=== PATIENT | female | born 1940 | race Caucasian/White ===

== ENCOUNTER 2016-04-22 06:49 | Inpatient (IN) | payer MEDICARE, OTHER ==
[2016-03-25 11:09] VITALS: BMI 32.0
--- NOTE | 2016-03-25 11:43 | PAT Medication Instructions ---
Service Date Mar 25, 2016. Current Home Medication List Aspirin (Aspirin Chewable), 2 TAB PO QAM Ezetimibe (Zetia), 10 MG PO QPM Multivitamins/Minerals (Mvi With Minerals), 1 TAB PO QAM Simvastatin (Zocor), 40 MG PO QPM Medication Instructions For Your Scheduled Surgery Aspirin (Aspirin Chewable), 2 TAB PO QAM (per surgeon instructions) - Hold the following medications the morning of surgery: Multivitamins/Minerals (Mvi With Minerals), 1 TAB PO QAM - Take the following medications as scheduled the night before surgery: Simvastatin (Zocor), 40 MG PO QPM Ezetimibe (Zetia), 10 MG PO QPM If you have any questions please call us at [phone] or [phone] ( Adri) or [phone]
[2016-03-25 12:26] LABS: BASO % 0.2 %; BASO ABS # 0.01 K/uL (0-0.2); COMPLETE YES; EOS % 4.6 %; HEMATOCRIT 40.6 % (37-47); IG% 0.2 %; LYMPH % 28.4 %; LYMPH ABS # 1.62 K/uL (1.2-3.4); MEAN CELL VOLUME 90.8 fL (80-100); MEAN CORPUSCULAR HEMOGLOBIN 31.1 pg (25-34); MEAN CORPUSCULAR HGB CONC 34.2 g/dl (32-36); MEAN PLATELET VOLUME 10.6 fL (7.4-10.4); NEUT % 56.6 %; PLATELET COUNT 219 K/uL (130-400); RED BLOOD COUNT 4.47 M/uL (4.2-5.4); WHITE BLOOD COUNT 5.71 K/uL (4.8-10.8)
--- NOTE | 2016-03-25 12:37 | DIAGNOSTIC IMAGING REPORT ---
TWO VIEW CHEST CLINICAL HISTORY: Preoperative examination. FINDINGS: PA and lateral chest radiographs are obtained. No prior studies are available for comparison at the time of dictation. There is atherosclerotic calcification of the thoracic aorta. The cardiomediastinal silhouette is unremarkable. Nonspecific interstitial thickening is noted. No airspace consolidation or pleural effusion is identified. There is no pneumothorax. The skeletal structures are osteopenic. Degenerative change is noted throughout the thoracic spine. Calcific tendinopathy is seen in the left shoulder. IMPRESSION: No active disease in the chest. Electronically signed by: Gilberto Trent M.D. 03/25/2016 12:36 PM Dictated Date/Time: 03/25/2016 12:35 PM
[2016-03-25 12:41] LABS: PROTHROMBIN TIME (PATIENT) 11.1 SECONDS (9.0-12.0)
[2016-03-25 12:55] LABS: BUN/CREATININE RATIO 34.8 (10-20); CALCIUM 9.7 mg/dl (8.5-10.1); CREATININE 0.73 mg/dl (0.60-1.20); POTASSIUM 3.8 mmol/L (3.5-5.1)
--- NOTE | 2016-04-17 23:09 | HISTORY & PHYSICAL EXAMINATION ---
DATE OF ADMISSION: 04/22/2016 CHIEF COMPLAINT: Bilateral knee pain, left side greater than right. HISTORY OF PRESENT ILLNESS: A 76-year-old white female presents for surgical treatment of her left knee. She has had a long history of bilateral knee pain and discomfort, left side greater than right. She has been through extensive conservative treatment including injections which have become less successful with time. Both knees hurt. Pain has been present for over 6 years. She would now like to proceed with left knee replacement. Left knee is worse than the right. PAST MEDICAL HISTORY: Includes: 1. Hypertension. 2. Anxiety/depression. PAST SURGICAL HISTORY: 1. Hysterectomy. 2. Cataract surgery. ALLERGIES: None. CURRENT MEDICINES: 1. Zetia. 2. Simvastatin. 3. Aspirin 81 mg a day. SOCIAL HISTORY: A 75-year-old female. She is . She is from [place]. FAMILY HISTORY: Noncontributory. REVIEW OF SYSTEMS: Negative for diabetes, neurologic problems, vascular problems, bleeding disorders. Denies any chest pain or shortness of breath. No history of DVT or PE. PHYSICAL EXAMINATION: GENERAL: Reveals a healthy, pleasant elderly female. Looks to be in pretty good health. HEENT: Benign. NECK: Supple, no lymphadenopathy. LUNGS: Clear to auscultation. HEART: Regular rate and rhythm. ABDOMEN: Soft, nontender, nondistended. EXTREMITIES: Grossly neurovascularly intact except as follows: Examination of both knees reveals the patient walks independently. She has got valgus alignment to her left knee. Small knee effusion. Range of motion of the left knee is about 5-120. No instability. X-RAYS: X-rays of the left knee revealed advanced left knee DJD. She has got complete loss of the lateral joint space on the 40 degree flexion films. She has got osteophytes in the lateral femoral condyle and lateral tibial plateau. Medial side seems pretty well preserved. ASSESSMENT: A 76-year-old female with bilateral knee pain and degenerative joint disease, left side quite a bit worse than the right. She has failed conservative treatment on the left side and would like to have her knee replaced. PLAN: We will take her to the operating room and do left total knee replacement. The risks and benefits of this procedure were explained to the patient including but not limited to DVT, PE, , infection, neurological injury, vascular injury, bleeding problem, pain, limited range of motion, stiffness, failure to relieve symptoms, incomplete relief of symptoms, need for further surgery in the future, fracture, leg length inequality, nerve palsy, etc. The patient understands and desires to proceed. Informed consent was obtained. We will continue to treat her right knee conservatively with injections. The patient had a preoperative workup. Labs were all normal. Chest x-ray is normal. She does have a left bundle-branch block on her EKG. She is asymptomatic from a cardiac standpoint. She is hoping to be discharged to home and use [facility] home health program, and I will see her back 2 weeks postop. ARIN
[2016-04-22] VITALS (9 sets, daily range): BP systolic 133–190; BP diastolic 77–94; PULSE 62–77; TEMP 36.3–36.8; O2SAT 95–100; Ht 152.4 cm; Wt 74.8 kg
[~2016-04-22] VITALS: Ht 152.4 cm; Wt 74.8 kg
[~2016-04-22 06:49] MED LIST: ACETAMINOPHEN 500 MG TAB PO SCH; ASPCH81X PO; BUPIVACAINE 0.25% 30 ML VIAL ONE; BUPIVACAINE 0.5 % 5 MG/1 ML PF 10ML VIAL ONE; BUPIVACAINE LIPOSOME 266 MG, BUPIVACAINE/EPINEPHRINE INJ 50 ML, SODIUM CHLORIDE 0.9% PF... INFIL SCH; CEFAZOLIN 2000 MG/60 ML D5W 60 ML IV SCH; EZET10TA63 PO; FAMOTIDINE 20 MG TAB PO SCH; GABAPENTIN 300 MG CAP PO SCH; LACTATED RINGER'S 1000ML 1,000 ML IV SCH; LACTATED RINGER'S 1000ML 500 ML IV ONE; METOCLOPRAMIDE HCL 10 MG TAB PO SCH; MULT-513 PO; SCOPOLAMINE 1.5 MG TDSY TD SCH; SIMV40TA2 PO; TRANEXAMIC ACID INJ 1,000 MG in SODIUM CHLORIDE 0.9% 100ML 100 ML IV SCH
[2016-04-22] MEDS ORDERED: ACET160S78 PO (07:09)
[2016-04-22] MEDS ORDERED: MIDAZOLAM HCL 1 MG/ML 2ML VIAL ONE ×3 (07:16→09:46)
[2016-04-22] MEDS ORDERED: FENTANYL CITRATE INJ 50 MCG/1 ML 2 ML VIAL ONE (07:16)
[2016-04-22] MEDS ORDERED: PROPOFOL IV EMULSION 10 MG/ML 20 ML VIAL IV ONE ×2 (07:16→10:16)
[2016-04-22] MEDS ORDERED: LIDOCAINE HCL 2% 2 ML VIAL (20MG/ML) ONE (07:16)
[2016-04-22] MEDS ORDERED: BACITRACIN 50000 UNIT VIAL ONE (08:41)
[2016-04-22] MEDS ORDERED: SODIUM CHL BACTERIOSTATIC 0.9% INJ 30 ML VIAL ONE (08:41)
[2016-04-22] MEDS ORDERED: BUPIVACAINE LIPOSOME 1/3% 266 MG/20 ML VIAL INFIL ONE (08:41)
[2016-04-22] MEDS ORDERED: BUPIVACAINE/EPINEPHRINE 0.25% 1:200,000 30 ML VIAL ONE (08:41)
--- NOTE | 2016-04-22 08:41 | History & Physical Bridge Note ---
H&P Re-Evaluation Bridge Note: I have examined the patient, reviewed the History & Physical and in the interval since the performance of the History & Physical I have noted the following changes of clinical significance: No changes noted
[2016-04-22] MEDS ORDERED: SODIUM CHLORIDE 0.9% PF 50 ML VIAL ONE (08:46)
[2016-04-22] MEDS ORDERED: BACITRACIN 50000 UNIT VIAL IR ONE (09:40)
[2016-04-22] MEDS ORDERED: ATROPINE SULFATE 0.1 MG/ML 5ML SYR IV PRN (09:45)
[2016-04-22] MEDS ORDERED: EpHEDrine SULFATE INJ 50 MG/ML AMP IV PRN (09:45)
--- NOTE | 2016-04-22 10:29 | [facility] Post Operative Brief Note ---
Immediate Operative Summary Operative Date Apr 22, 2016. Pre-Operative Diagnosis Left Knee Degenerative Joint Disease Post-Operative Diagnosis Left Knee Degenerative Joint Disease Procedure(s) Performed Left Total Knee Arthroplasty, Cemented Surgeon Dr. Shipley Auto Mechanic Apprentice Surgeon(s) Jung Galvez PA-C Estimated Blood Loss 50 ML Findings Left Knee DJD Fluids (cc crystalloids) 1500 cc Specimens A: Left Knee Bone and Tissue Drains None Anesthesia Spinal Complication(s) None Disposition Recovery Room / PACU
[2016-04-22] MEDS ORDERED: ZOLPIDEM TARTRATE 5 MG TAB PO PRN (10:30)
[2016-04-22] MEDS ORDERED: ALUMINUM/MAGNESIUM/SIMETH (MAALOX MAX) 30 ML UDC PO PRN (10:30)
[2016-04-22] MEDS ORDERED: METOCLOPRAMIDE HCL INJ 5 MG/ML 2 ML VIAL IV PRN (10:30)
[2016-04-22] MEDS ORDERED: TRAMADOL HCL 50 MG TAB PO PRN (10:30)
[2016-04-22] MEDS ORDERED: DiphenhydrAMINE HCL 50 MG/ML VIAL IV PRN (10:30)
[2016-04-22] MEDS ORDERED: BISACODYL 10 MG SUPP PR PRN (10:30)
[2016-04-22] MEDS ORDERED: ONDANSETRON INJ 2 MG/ML 2 ML VIAL IV PRN (10:30)
[2016-04-22] MEDS ORDERED: MoRPHine SULFATE 2 MG/ML CARP IV PRN (10:30)
[2016-04-22] MEDS ORDERED: MAGNESIUM HYDROXIDE SUSP 30 ML UDC PO PRN (10:30)
[2016-04-22] MEDS ORDERED: SILVER SULFADIAZINE 1% CR 50 GM JAR EXT PRN (10:30)
[2016-04-22] MEDS ORDERED: ONDANSETRON INJ 2 MG/ML 2 ML VIAL ONE (10:59)
--- NOTE | 2016-04-22 11:02 | DIAGNOSTIC IMAGING REPORT ---
TWO VIEWS LEFT KNEE CLINICAL HISTORY: Postoperative examination. FINDINGS: AP and crosstable lateral portable views of the left knee are obtained. A left knee arthroplasty is in near anatomic alignment. There has been undersurface remodeling of the patella. No acute fracture is seen. There are expected postoperative changes around the knee including skin clips, soft tissue edema, and subcutaneous gas. IMPRESSION: Expected postoperative changes status post left knee arthroplasty. No acute fracture is seen. Electronically signed by: Gilberto Trent M.D. 04/22/2016 11:01 AM Dictated Date/Time: 04/22/2016 11:00 AM
[2016-04-22] MEDS ORDERED: ONDANSETRON INJ 2 MG/ML 2 ML VIAL IV STA (11:11)
--- NOTE | 2016-04-22 11:21 | OPERATIVE REPORT ---
DATE OF OPERATION: 04/22/2016 SURGEON: Tristen Shipley MD PORTAL DEVELOPER: LUIS Foley. PREOPERATIVE DIAGNOSIS: Left knee degenerative joint disease. POSTOPERATIVE DIAGNOSIS: Same. PROCEDURE PERFORMED: Left cemented posterior stabilized total knee arthroplasty. COMPLICATIONS: None. ESTIMATED BLOOD LOSS: 50 mL. FLUID REPLACEMENT: 1500 mL crystalloid fluid replacement. ANESTHESIA: Spinal with adductor canal block. DRAINS: None. SPECIMENS: Left knee sent for pathology. TOURNIQUET TIME: 53 minutes at 300 mmHg. OPERATIVE INDICATIONS: The patient is a 76-year-old female who has had a long history of bilateral knee pain and discomfort. I have been following her for the past several years, treating her with injections. This became less successful over time. The left knee was hurting her more than the right. X-rays showed advanced arthritis and the patient elected to proceed with operative treatment. OPERATIVE FINDINGS: Operative findings revealed advanced left knee DJD. She had grade 4 [id number] disease, particularly on the lateral side of the knee. She had eburnation of the lateral femoral condyle and lateral tibial plateau. She had a valgus aligned knee. Moderate size joint effusion. OPERATIVE IMPLANTS: Operative implants consisted of: 1. Biomet Vanguard size 62.5 left posterior stabilized femoral component. 2. Biomet size 67 tibial tray. 3. A 12 mm posterior stabilized polyethylene insert. 4. A 28 x 8 all poly patella. OPERATIVE PROCEDURE: The patient was taken to the operating room, identified and placed on the operating table in supine position. All contact areas were appropriately padded. IV antibiotics were provided by the anesthesia team. A spinal anesthetic and adductor canal block had been provided in the holding area. A Ramirez catheter was placed in sterile fashion. Left thigh tourniquet was then placed. The left lower extremity was then prepped and draped in the usual sterile fashion. Left leg was elevated and exsanguinated with Esmarch and tourniquet was placed at 300 mmHg. An anterior approach to the left knee was then performed through a longitudinal incision centered over the patella. Sharp dissection was carried out through the subcutaneous tissues down to the level of the extensor mechanism. A medial parapatellar arthrotomy incision was made. Some subperiosteal dissection was carried out medially. The fat pad was resected from beneath the patellar tendon. Lateral patellofemoral ligament was released. The patella was everted and knee was flexed. The osteophytes were taken off the distal femur. The ACL and PCL were then released from the distal femur and the tibia subluxated anteriorly. The external tibial alignment jig was then placed in the anterior face of the tibia and adjusted 14 mm medially. Proximal tibial cut was made to remove about 3-4 mm of bone from the medial side. The tibia was then sized to a size 67. Attention was then drawn to the femur. The distal femur was entered with a sharp drill bit. Intramedullary canal was suctioned. A left 5-degree valgus cutting guide was placed. Distal femoral cutting block was pinned in place. Distal femoral cut was made to take an additional 3 mm of bone off the distal femur. The knee was then brought out into extension. I then did a release of the IT band in order to equalize the extension gap. The posterolateral capsule was not excessively tight, so we left this alone. Great care was taken to protect the peroneal nerve at all times. The knee was then flexed. The femur was then sized to a size 62.5. We did downsize this due to the narrow medial/lateral dimensions to her femur. The AP cutting block was pinned parallel to the epicondylar axis, which was 6 degrees of external rotation. The anterior cut, anterior chamfer, posterior cut, posterior chamfer cuts were made. Box cutting guide was placed and adjusted slightly lateral and the box cut was made. The knee was flexed. The remnants of the medial and lateral menisci were excised. The osteophytes were taken off the posterior aspect of the femur. Trial femoral component was placed. Tibial tray was pinned in maximum external rotation and drill and stem punch were used to create defect in the proximal tibia for the tibial tray. The knee was then trialed and the 12 mm insert fit most appropriately. Attention was then drawn to the patella. The patella was cleaned of all soft tissues. Patella thickness measured 19 mm, was cut down to 12. It was sized to a size 28 patella. Lug holes were drilled for the 28 patella. Lateral osteophyte was removed. Patella button was placed. Knee was taken through range of motion and the patella tracked nicely with no thumbs test. Attention was then drawn toward placement of the permanent components. All trial components were removed. A bone plug was placed in the distal femur to limit blood loss. A double batch of Palacos G cement was mixed. A left size 62.5 posterior stabilized femoral component, size 67 tibial tray, a 12 mm posterior stabilized polyethylene insert, a 28 x 8 all poly patella then cemented in place. Knee was brought out into full extension until cement hardened. A final cement check was then performed. Pericapsular tissues were injected with a total of 100 mL of a combination of 20 mL of Exparel, 30 mL of normal saline, 50 mL of 0.25% Marcaine with epinephrine. The patient did receive 1 gram of tranexamic acid. The tourniquet was then let down for a final tourniquet time of 53 minutes. Hemostasis was assured with use of electrocautery. The wound was once again irrigated. The extensor mechanism was then closed with a combination of #1 PDS suture and #1 Vicryl suture in a [id number] fashion. Extensor mechanism was checked and found to be intact. The subcutaneous tissues were then closed with 2-0 Dexon suture in a buried interrupted fashion. Skin was closed with skin max. Leg was then cleaned and dried and a sterile dressing of Xeroform, 4 x 4, sterile cast padding and an Juan bandage were applied. The patient then transferred to the recovery room in stable condition. The patient tolerated the procedure well with no complications. All needle and sponge counts were correct at the end of the operation. I attest to the content of the Intraoperative Record and any orders documented therein. Any exceptio ns are noted below.
--- NOTE | 2016-04-22 12:00 | Anesthesiology Progress Note ---
Anesthesia Post Op Note Date & Time Apr 22, 2016 at 12:00 Vital Signs Pain Intensity: 0 Vital Signs Past 12 Hours Date Time Temp Pulse Resp B/P Pulse Ox O2 Delivery O2 Flow Rate FiO2 04/22/16 11:15 36.8 78 16 151/88 98 Nasal Cannula 2 04/22/16 11:05 78 16 176/98 98 Nasal Cannula 2 04/22/16 10:55 76 16 163/93 98 Nasal Cannula 2 04/22/16 10:45 78 16 155/87 94 Mask 10 04/22/16 10:35 36.6 87 16 127/79 99 Mask 10 04/22/16 07:10 36.5 64 20 190/94 98 Room Air Notes Mental Status: alert / awake / arousable, participated in evaluation Pt Amnestic to Procedure: Yes Nausea / Vomiting: adequately controlled Pain: adequately controlled Airway Patency, RR, SpO2: stable & adequate BP & HR: stable & adequate Hydration State: stable & adequate Neuraxial Anesthesia: was administered, sensory block is resolving Anesthetic Complications: no major complications apparent
--- NOTE | 2016-04-22 13:37 | PROGRESS NOTE ---
DATE: 04/22/2016 SUBJECTIVE: A 76-year-old female, postop from a left knee replacement. She is doing well. Not having any pain yet. Did have a little nausea earlier but this has resolved. No chest pain or shortness of breath. Not feeling dizzy or lightheaded. OBJECTIVE: VITAL SIGNS: Temperature is 36.6. Vital signs stable. PHYSICAL EXAMINATION: GENERAL: Reveals a pleasant elderly female. She is lying in bed and looks comfortable. LUNGS: Clear to auscultation. HEART: Regular rate and rhythm. ABDOMEN: Soft, nontender, nondistended. EXTREMITIES: Grossly neurovascularly intact except as follows: Examination of the left lower extremity reveals the leg to be well aligned. She can dorsiflex and plantarflex her foot and toe just slightly. Still decreased sensation in the left leg. She has got brisk refill, good distal pulse. X-RAYS: X-rays of the left knee from recovery room were reviewed. It shows a left cemented posterior stabilized total knee arthroplasty. Components looked to be in good position. No signs of problems. ASSESSMENT: A 76-year-old female, postop from a left knee replacement, doing well. Pain is controlled. Her nerve function is just returning from the spinal. PLAN: 1. DVT prophylaxis including thigh-high TEDs, SCDs, and aspirin twice a day. 2. PT/OT. Weightbearing as tolerated. Left total knee protocol. 3. Pain control. Doing well with current pain regimen. We will try and stick to p.o. pain medicine as much as possible. 4. IV antibiotics x24 hours. 5. Disposition: She is planning to be discharged to home with some home health once adequately recovered.
[2016-04-22] MEDS: D5W AND 1/2NSS + 20MEQ KCL 1,000 ML IV SCH ×2 (13:40→23:55)
[2016-04-22] MEDS: KETOROLAC TROMETHAMINE 15 MG/ML VIAL IV. SCH ×2 (14:12→19:39)
[2016-04-22] MEDS: ACETAMINOPHEN 500 MG TAB PO SCH ×2 (15:37→21:42)
[2016-04-22] MEDS: CHECK SCOPOLAMINE PATCH PLACEMENT SCH ×2 (15:37→23:55)
[2016-04-22] MEDS ORDERED: TRANEXAMIC ACID INJ 1,000 MG in SODIUM CHLORIDE 0.9% 100ML 100 ML IV SCH (16:30)
[2016-04-22] MEDS: CEFAZOLIN IV 1,000 MG in DEXTROSE 5% 50ML 50 ML IV SCH (17:31)
[2016-04-22] MEDS: FERROUS GLUCONATE 324 MG TAB PO SCH (18:45)
[2016-04-22] MEDS: DOCUSATE SODIUM 100 MG CAP PO SCH (20:33)
[2016-04-22] MEDS: EZETIMIBE 10MG TAB PO SCH (20:33)
[2016-04-22] MEDS: SIMVASTATIN 40 MG TAB PO SCH (20:33)
[2016-04-22] MEDS: ASPIRIN 325 MG ECTAB PO SCH (20:33)
[2016-04-23] MEDS: KETOROLAC TROMETHAMINE 15 MG/ML VIAL IV. SCH ×4 (01:30→20:37)
[2016-04-23] MEDS: CEFAZOLIN IV 1,000 MG in DEXTROSE 5% 50ML 50 ML IV SCH (01:30)
[2016-04-23 03:13] VITALS: BP 167/79; PULSE 67; TEMP 36.8; O2SAT 96
[2016-04-23] MEDS: ACETAMINOPHEN 500 MG TAB PO SCH ×3 (06:05→21:32)
[2016-04-23 06:13] LABS: HEMATOCRIT 33.4 % (37-47); MEAN CORPUSCULAR HEMOGLOBIN 31.7 pg (25-34); MEAN CORPUSCULAR HGB CONC 34.4 g/dl (32-36); MEAN PLATELET VOLUME 10.7 fL (7.4-10.4); PLATELET COUNT 151 K/uL (130-400); RED BLOOD COUNT 3.63 M/uL (4.2-5.4)
[2016-04-23 06:43] LABS: BUN/CREATININE RATIO 20.1 (10-20); CALCIUM 8.4 mg/dl (8.5-10.1); CREATININE 0.8 mg/dl (0.60-1.20); POTASSIUM 3.9 mmol/L (3.5-5.1)
[2016-04-23] MEDS: FERROUS GLUCONATE 324 MG TAB PO SCH ×3 (07:14→17:44)
[2016-04-23] MEDS: CHECK SCOPOLAMINE PATCH PLACEMENT SCH ×3 (07:15→22:36)
[2016-04-23 08:01] VITALS: BP 160/80; PULSE 62; TEMP 36.7; O2SAT 93
[2016-04-23] MEDS: ASPIRIN 325 MG ECTAB PO SCH ×2 (08:37→20:37)
[2016-04-23] MEDS: CEROVITE ADV FORMULA TAB PO SCH (08:37)
[2016-04-23] MEDS: PANTOprazole SOD 40 MG TAB PO SCH (08:37)
[2016-04-23] MEDS: DOCUSATE SODIUM 100 MG CAP PO SCH ×2 (08:37→20:37)
[2016-04-23 08:40] VITALS: O2SAT 93
[2016-04-23] MEDS ORDERED: MULTIVITAMIN TAB PO SCH (09:00)
[2016-04-23] MEDS: D5W AND 1/2NSS + 20MEQ KCL 1,000 ML IV SCH (09:05)
[2016-04-23] MEDS ORDERED: ULT50X PO (10:05)
[2016-04-23] MEDS ORDERED: ASPEC325 PO (10:05)
--- NOTE | 2016-04-23 10:07 | Discharge Instructions ---
Discharge Instructions Admission Reason for Admission: Left Knee Degenerative Joint Disease Discharge Discharge Diagnosis / Problem: Left Knee Replacement Discharge Goals Goal(s): Decrease discomfort, Improve function, Increase independence, Improve disease control, Therapeutic intervention Activity Recommendations Activity Limitations: per Instructions/Follow-up section Weightbearing Status: Left weightbearing . Instructions / Follow-Up Instructions / Follow-Up ACTIVITY RECOMMENDATIONS: Physical Therapy: * You will go to physical therapy three times each week for four to six weeks after your surgery in order to regain your knee range of motion and to retrain your knee to work properly. * It is just as important to make sure you are getting your knee perfectly straight as it is to regain your knee bend. * Taking a pain pill an hour before therapy can help you have a more productive and comfortable therapy session. Home Exercise: * You were shown a series of exercises (heel props, heel slides, etc.) in the hospital. Do these exercises three to four times each day including the exercises you were shown in physical therapy. Walking: * Get up and walk several times each day. For the first four weeks, try not to stand or walk for more than one hour at a time. If you do stand or walk for more than one hour, you will not hurt anything, but your knee and leg will likely swell. * As you feel comfortable, you may change from the walker or crutches to a cane and then to independent walking. MEDICATIONS: New Medicine: * You will likely be taking one or more of these medications: 1. Tramadol - A quick and shorter-acting pain medication. Take one to two tablets every four to six hours to lessen your pain. 2. Aspirin - Thins your blood to lessen the chance of forming a blood clot. * The most common side effects of pain medicine and iron are nausea and constipation. If nausea or constipation is too much of a problem or if you have any questions about your new medicines or doses, call [facility] at . We will try to help you manage these issues. VERY IMPORTANT TO READ AND REVIEW" Pain: * The immediate post-operative period after knee replacement surgery is often quite painful. * You are given a prescription for pain medicine. You should take it, as directed, when you need it, especially before physical therapy and before going to bed. Pain that interferes with sleep is very common and can last several months. * You will likely need pain medicine for the first four to six weeks. It will not stop all of the pain. The pain will lessen and as you feel better, you may change to milder pain medicine such as Tylenol. * The most common side effects of pain medicine are nausea and constipation, so don't take more than you need. SPECIAL CARE INSTRUCTIONS: TEDs/Elastic Stockings: * The white elastic stockings help limit swelling and prevent blood clots from forming in your legs. The more you wear them, the more they work. * Wear them for six weeks after knee replacement surgery and four weeks after partial knee replacement. Prevention of Infection: * Take antibiotics one hour before any dental cleaning, dental work, urological procedure, gastrointestinal procedure or any invasive surgery in order to prevent your new joint from getting infected. * You may get the antibiotics from the doctor performing the procedure or you may call our office at before and we will call in a prescription to the pharmacy of your choice. Things to Watch For: * Drainage from the incision site that occurs more than one week after your surgery. * Severely increased knee/leg pain or swelling. * Increased redness at the incision site. * Fever above 102 degrees Fahrenheit. * Unusual chest pain or shortness of breath. * Unusual pain or burning with urination. Call [facility] at with any of the above problems or if you have any questions about your medicines or recovery. FOLLOW UP VISIT: Make an appointment to see your doctor for approximately two weeks after surgery for a progress check and staple removal by calling the office at . Current Hospital Diet Patient's current hospital diet: Regular Diet Discharge Diet Recommended Diet: Regular Diet Procedures Procedures Performed: Left Total Knee Arthroplasty, Cemented Pending Studies Studies pending at discharge: no Medical Emergencies . Who to Call and When: Medical Emergencies: If at any time you feel your situation is an emergency, please call [phone] immediately. . Non-Emergent Contact Non-Emergency issues call your: Surgeon . "Provider Documentation" section prepared by Tristen Shipley. VTE Core Measure Inpt VTE Proph given/why not?: Other Anticoagulation, T.E.D. Stockings, SCD's
--- NOTE | 2016-04-23 10:17 | PROGRESS NOTE ---
DATE: 04/23/2016 DATE: 04/23/2016. SUBJECTIVE: A 76-year-old white female postop day 1 from a left knee replacement. She is doing pretty well. Some pain with therapy. She says the pain medicines are making her a little bit goofy. No chest pain or shortness of breath. Not feeling dizzy or lightheaded. OBJECTIVE: VITAL SIGNS: Temperature 36.7. Vital signs stable. PHYSICAL EXAMINATION: GENERAL: Reveals a healthy pleasant elderly female. She is sitting up in her wheelchair and talking to the therapist this morning. LUNGS: Clear to auscultation. HEART: Regular rate and rhythm. ABDOMEN: Soft, nontender, nondistended. EXTREMITY EXAMINATION: Grossly neurovascularly intact except as follows: Examination of the left lower extremity reveals the dressing to be clean, dry and intact. It has been reinforced. She can dorsiflex and plantarflex her foot appropriately. She is neurologically intact. LABORATORY DATA: Hemoglobin 11.5, hematocrit 33.4. Electrolytes are stable. ASSESSMENT: A 76-year-old white female postop day 1 from left total knee replacement, doing pretty well. She has had a little bit of confusion with the pain medicines. PLAN: 1. DVT prophylaxis including thigh-high TEDs, SCDs, and aspirin twice a day. 2. PT/OT. She can fully weightbear as tolerated left leg. 3. Pain control. We are going to stick to Tylenol around the clock and use some Toradol. Will use tramadol only as necessary to avoid confusion issues. 4. Disposition: She is planning to be discharged to home with some home health once adequately recovered.
[2016-04-23 15:33] VITALS: BP 177/81; PULSE 80; TEMP 37; O2SAT 96
[2016-04-23 16:50] VITALS: BP 154/92
[2016-04-23] MEDS: EZETIMIBE 10MG TAB PO SCH (20:37)
[2016-04-23] MEDS: SIMVASTATIN 40 MG TAB PO SCH (20:38)
[2016-04-23 23:49] VITALS: BP 163/84; PULSE 78; TEMP 36.8; O2SAT 91
[2016-04-24] MEDS: KETOROLAC TROMETHAMINE 15 MG/ML VIAL IV. SCH ×2 (02:25→08:00)
[2016-04-24] MEDS: ACETAMINOPHEN 500 MG TAB PO SCH (06:05)
[2016-04-24 06:52] VITALS: BP 152/79; PULSE 73; TEMP 36.9; O2SAT 99
--- NOTE | 2016-04-24 07:45 | PROGRESS NOTE ---
DATE: 04/24/2016 DATE: 04/24/2016. SUBJECTIVE: A 76-year-old white female postop day 2 from a left knee replacement. She is doing well. Pain is improved. No chest pain or shortness of breath. Not feeling dizzy or lightheaded. OBJECTIVE: VITAL SIGNS: Temperature 36.9. Vital signs stable. Some mild hypertension. PHYSICAL EXAMINATION: GENERAL: A pleasant elderly female. She is sitting up in bed. She is awake, alert and oriented. LUNGS: Clear to auscultation. HEART: Has a regular rate and rhythm. ABDOMEN: Soft, nontender, nondistended. EXTREMITY EXAMINATION: Grossly neurovascularly intact except as follows: Examination of the left lower extremity reveals the leg to be well aligned. She can dorsiflex and plantarflex her foot appropriately. She is neurologically intact. ASSESSMENT: A 76-year-old white female postop day 2 from a left knee replacement, doing pretty well. Pain is controlled. PLAN: 1. DVT prophylaxis including thigh-high TEDs, SCDs, and aspirin twice a day. 2. PT/OT. Weightbearing as tolerated. Left total knee protocol. 3. Pain control, doing pretty well with current pain regimen. 4. Disposition: Plan to discharge to home after therapy today.
[2016-04-24] MEDS: PANTOprazole SOD 40 MG TAB PO SCH (08:56)
[2016-04-24] MEDS: CEROVITE ADV FORMULA TAB PO SCH (08:56)
[2016-04-24] MEDS: DOCUSATE SODIUM 100 MG CAP PO SCH (08:56)
[2016-04-24] MEDS: FERROUS GLUCONATE 324 MG TAB PO SCH (08:56)
[2016-04-24] MEDS: ASPIRIN 325 MG ECTAB PO SCH (08:56)
[2016-04-24 10:27] VITALS: BP 152/79; PULSE 73; TEMP 36.9; O2SAT 99
--- NOTE | 2016-04-29 01:47 | DISCHARGE SUMMARY ---
ADMITTING PHYSICIAN AND SURGEON: Tristen Shipley MD ADMITTING DIAGNOSIS: Left knee degenerative joint disease. SURGERY PERFORMED: Left total knee arthroplasty. SECONDARY DIAGNOSES: Include hypertension, anxiety, depression. CONSULTS: None obtained. HOSPITAL COURSE: The patient was admitted on 04/22/2016 and underwent total knee arthroplasty, tolerated the procedure well. There were no complications. She was transferred to the PACU postoperatively and later to the orthopedic floor for further care. She was given Ancef for antibiotic prophylaxis, SORAIDA stockings, SCDs and aspirin for DVT prophylaxis. Hemoglobin, hematocrit and vital signs were monitored during her hospital stay and remained stable. She developed some mild postoperative anemia with a hemoglobin of 11.5. She did not require blood transfusions. There were no complications. By postoperative day 2, she was tolerating a general diet, pain was controlled with oral pain medicine. She was participating in physical therapy and had no signs or symptoms of deep vein thrombosis. On postop day 2, she was discharged home in good condition, set up with home health services. She was given printed discharge instructions including prescriptions for aspirin 325 mg b.i.d. and tramadol. She can continue her home medicines with the exception of her home dose of aspirin which is changed. Continue physical therapy, weightbearing as tolerated, SORAIDA stockings, follow up in 10-12 days or sooner if there are problems or concerns.
== END 2016-04-24 11:15 | disposition home health service (06) | DRG 470 ==
LOC: ENRESERVDT → ENRESERVTM → C.ACU 06:49 → C.3E 07:25
PROVIDERS: ADMIT Orthopaedic Surgery Sports Medicine; ATTEND Orthopaedic Surgery Sports Medicine
PROC: 0SRD0J9 Replacement of Left Knee Joint with Synthetic Substitute, Cemented, Open Approach (ICD-10-PCS; principal; 2016-04-22 08:45)
DX: M17.12 Unilateral primary osteoarthritis, left knee (principal); R41.0 Disorientation, unspecified; I10 Essential (primary) hypertension; M25.462 Effusion, left knee; M21.062 Valgus deformity, not elsewhere classified, left knee; T50.905A Adverse effect of unspecified drugs, medicaments and biological substances, initial encounter; Y92.230 Patient room in hospital as the place of occurrence of the external cause; M54.5 Low back pain; E66.9 Obesity, unspecified; M54.2 Cervicalgia; E78.5 Hyperlipidemia, unspecified; I25.10 Atherosclerotic heart disease of native coronary artery without angina pectoris; I44.7 Left bundle-branch block, unspecified; R25.1 Tremor, unspecified; Z86.79 Personal history of other diseases of the circulatory system; Z68.32 Body mass index [BMI] 32.0-32.9, adult; Z79.82 Long term (current) use of aspirin; Z79.899 Other long term (current) drug therapy; Z86.59 Personal history of other mental and behavioral disorders

== ENCOUNTER 2022-11-25 06:19 | Observation (INO) ==
--- NOTE | 2022-10-20 12:03 | PAT Medication Instructions ---
Medication Instructions Date of Service October 20, 2022 Home Medications amlodipine 2.5 mg tablet 2.5 mg PO QPM amoxicillin 500 mg tablet 2,000 mg PO UD PRN atorvastatin 40 mg tablet 40 mg PO QPM glipizide 5 mg tablet 5 mg PO QAM losartan 50 mg tablet 50 mg PO QPM metformin 500 mg tablet 500 mg PO QPM Continue as directed amoxicillin 500 mg tablet 2,000 mg PO UD PRN(if needed) DO NOT take the morning of surgery glipizide 5 mg tablet 5 mg PO QAM Take evening before surgery amlodipine 2.5 mg tablet 2.5 mg PO QPM atorvastatin 40 mg tablet 40 mg PO QPM losartan 50 mg tablet 50 mg PO QPM metformin 500 mg tablet 500 mg PO QPM Other Notes NOTHING TO EAT OR DRINK AFTER MIDNIGHT. If you have any questions please call us at [phone] or [phone] or [phone] or [phone]
--- NOTE | 2022-10-23 10:39 | Anesthesiology Consultation ---
Date of Service October 23, 2022 Assessment & Plan (1) Encounter for pre-operative examination: Chart Review Chart Review: Acceptable Risk for Surgery (pending cardio clearance 11/11/22) and Patient seen in Pre Admission Testing - Chronic LBBB but history of cardiac work up (ECHO or stress test)- discussed with Dr. Jimenez- recommending cardio evaluation prior to surgery. Pt scheduled to see [facility] 11/11/22 at [place] office - Check BSG AM DOS' -Pt is NOT an OPJ candidate due to comorbidities and age Per PAT appt on 10/23/22, patient denies any recent travel. No recent Covid exposures, Covid related symptoms, or recent Covid positive tests. Will leave to surgeon's discretion if preop Covid testing needed. Educated on importance of using Covid precautions one week prior to surgery Teaching & Discussion Pre-Anesthesia Teaching/Discussion Notes: Instructed NPO after midnight before surgery,except medications with 15 cc of water. Medication instructions provided according to the PAT guidelines. History Surgery Operation Date: 11/25/22 07:00 Proposed Procedures p Right Total Knee Arthroplasty - Tristen Shipley MD Height/Weight Height: 5 ft 2 in Weight: 68.5 kg Allergies Allergy/AdvReac Type Severity Reaction Status Date / Time tramadol AdvReac Severe Shaking Verified 10/23/22 10:34 Medications Home Medications Medication Instructions Recorded Confirmed Last Taken amlodipine 2.5 mg tablet 2.5 mg PO QPM 10/20/22 10/20/22 Unknown amoxicillin 500 mg tablet 2,000 mg PO UD PRN dental 10/20/22 10/20/22 Unknown procedures atorvastatin 40 mg tablet 40 mg PO QPM 10/20/22 10/20/22 Unknown glipizide 5 mg tablet 5 mg PO QAM 10/20/22 10/20/22 Unknown losartan 50 mg tablet 50 mg PO QPM 10/20/22 10/20/22 Unknown metformin 500 mg tablet 500 mg PO QPM 10/20/22 10/20/22 Unknown Past Medical History Medical History (Updated 10/23/22 @ 11:05 by Adri Molina PA-C) Diabetes Fair controlled per patient History of shingles beginning 08/2022, left side of face- no active lesions>"everything is healed"- still has mild pain- taking Valtrex until 11/14/22 Hyperlipidemia Hypertension LBBB (left bundle branch block) Present since at least 2014 per records review Parkinson disease Stable Follows with PCP- no neurologist Right knee DJD Exercise / Class Metabolic Activity III < 4 Walking/Shop/Light housework (no chest pain or SOB with flat surface ambulation - no walker or cane needed ) Past Surgical History Surgical History History of carpal tunnel release of both wrists History of total left knee replacement Hx of appendectomy Hx of bilateral cataract extraction Hx of colonoscopy Hx of tooth extraction Hx of total hysterectomy with removal of both tubes and ovaries Hx of tubal ligation Past Anesthesia History No Hx of Anesthesia Complications and No Family Hx of Anesthesia Complications History of PONV No Hx of PONV and No Hx of Motion Sickness Social History Smoking Status: Never smoker Do You Dip or Chew Tobacco: No Hx Alcohol Use: No Hx Substance Use: No substance use type: does not use Review of Systems Patient denies chest pain, shortness of breath, dyspnea on exertion, reflux, cough, wheezing, palpitations. No hx of seizures, stroke, [place], apnea/snoring. No hx of blood clots or blood transfusions Physical Exam Vital Signs VITALS BP 148/77 P 93 TEMP 98.2 SP02 94% RESP 16 Constitutional no acute distress ENMT Mouth: no TMJ clicking Thyromental Distance: > or= 3.5 Finger Breadths (4.0) Mallampati Class: III Full upper denture Missing bottom molars and side teeth Neck + limited neck extension (minimal) Respiratory normal respiratory effort; no respiratory distress Auscultation: lungs clear to auscultation bilaterally; no wheezes Cardiovascular Rate/Rhythm: regular rate and regular rhythm Heart Sounds: no murmur Vessels: no carotid bruit Musculoskeletal Spine: + pain with cervical ROM Extremities: extremities normal to inspection Psychiatric Orientation: alert Lab Results Anesthesia Preop Results Results Anesthesia Widget: WBC 5.02 K/ul (4.8-10.8) 10/23/22 Hgb 13.1 g/dl (12.0-16.0) 10/23/22 Hct 37.8 % (37.0-47.0) 10/23/22 Plt 205 K/uL (130-400) 10/23/22 Na 142 mmol/L (136-145) 10/23/22 K 3.7 mmol/L (3.5-5.1) 10/23/22 Cl 106 mmol/L (98-107) 10/23/22 CO2 31 mmol/L (21-32) 10/23/22 BUN 24 mg/dl (6-23) H 10/23/22 Creat 0.73 mg/dl (0.6-1.2) 10/23/22 Glucose Level 84 mg/dl (70-99(Fasting)) 10/23/22 PT 11.8 Seconds (9.0-12.0) 10/23/22 PTT 27.2 Seconds (21.0-31.0) 10/23/22 INR 1.1 (0.9-1.1) 10/23/22 HA1c 6.5 % (4.5-5.6) H 10/23/22 Blood Type A Positive 10/23/22 Antibody Screen NEGATIVE 10/23/22 Testing Electrocardiogram Date: 10/23/22 Findings: + NSR @ (61bpm) Left axis deviation LBBB When compared to EKG from [facility]- no significant change was found Chest X-Ray Date: 10/23/22 Findings: + NAD FINDINGS: PA and lateral chest radiographs are compared to study dated 03/25/2016. The cardiomediastinal silhouette is top normal for projection noting atherosclerotic calcification of the thoracic aorta. The lungs and pleural spaces are clear. There is no pneumothorax. The skeletal structures are osteopenic. The bony thorax appears intact. Degenerative change is noted in the shoulders and spine.
[~2022-11-25 06:19] MED LIST changes: -ASPCH81X PO; -BUPIVACAINE 0.25% 30 ML VIAL ONE; -BUPIVACAINE LIPOSOME 266 MG, BUPIVACAINE/EPINEPHRINE INJ 50 ML, SODIUM CHLORIDE 0.9% PF... INFIL SCH; +BUPIVACAINE LIPOSOME/PF 266 MG, BUPIVACAINE/EPINEPHRINE 50 ML, SODIUM CHLORIDE 0.9% PF ... INFIL SCH; -CEFAZOLIN 2000 MG/60 ML D5W 60 ML IV SCH; +CeleBREX 200 MG CAP PO SCH; -EZET10TA63 PO; -GABAPENTIN 300 MG CAP PO SCH; -LACTATED RINGER'S 1000ML 1,000 ML IV SCH; -LACTATED RINGER'S 1000ML 500 ML IV ONE; +LR 500ML BOLUS, THEN 15ML/HR IV SCH; +LR 60ML/HR IV SCH; -METOCLOPRAMIDE HCL 10 MG TAB PO SCH; +METOCLOPRAMIDE HCL 10 MG TABLET PO SCH; -MULT-513 PO; +ROPIVACAINE 0.5% 5 MG/ML 30 ML VIAL ONE; -SCOPOLAMINE 1.5 MG TDSY TD SCH; -SIMV40TA2 PO; +TRANEXAMIC ACID 1,000 MG **IV Intra-op IV SCH; -TRANEXAMIC ACID INJ 1,000 MG in SODIUM CHLORIDE 0.9% 100ML 100 ML IV SCH; +ceFAZolin 2000MG 2,000 MG/15 ML SYR IV SCH
[2022-11-25] MEDS ORDERED: fentaNYL citrate PF 100 MCG/2 ML VIAL ONE (06:38)
[2022-11-25] MEDS ORDERED: MIDAZOLAM HCL 1 MG/ML 2ML VIAL ONE (06:38)
--- NOTE | 2022-11-25 07:01 | History & Physical Bridge Note ---
Date of Service November 25, 2022 History & Physical Bridge Note I have examined the patient, reviewed the History & Physical and in the interval since the performance of the History & Physical I have noted the following changes of clinical significance: no changes noted
[2022-11-25] MEDS ORDERED: ePHEDrine sulfate 50 MG/ML AMP IV PRN (08:23)
[2022-11-25] MEDS ORDERED: ONDANSETRON INJ 2 MG/ML 2 ML VIAL IV PRN ×2 (08:23→12:39)
[2022-11-25] MEDS ORDERED: fentaNYL citrate PF 100 MCG/2 ML VIAL IV PRN (08:23)
[2022-11-25] MEDS ORDERED: ATROPINE SULFATE 0.1 MG/ML 10ML SYR IV PRN (08:23)
[2022-11-25] MEDS ORDERED: BUPIVACAINE/EPINEPHRINE 0.25% 1:200,000 30 ML VIAL ONE (08:40)
[2022-11-25] MEDS ORDERED: SODIUM CHLORIDE 0.9% PF 50 ML VIAL ONE (08:40)
[2022-11-25] MEDS ORDERED: BUPIVACAINE LIPOSOME 1.3% 266 MG/20 ML VIAL ONE (08:41)
[2022-11-25] MEDS ORDERED: diphenhydrAMINE 50 MG/ML VIAL ONE (09:29)
[2022-11-25] MEDS ORDERED: DEXAMETHASONE SOD INJ 4 MG/ML VIAL ONE (09:29)
[2022-11-25] MEDS ORDERED: LIDOCAINE 2% 2 ML VIAL/AMP(20MG/ML) INFIL ONE (09:29)
[2022-11-25] MEDS ORDERED: PROPOFOL IV EMULSION 10 MG/ML 20 ML VIAL IV ONE ×2 (09:29→10:13)
[2022-11-25] MEDS ORDERED: ONDANSETRON INJ 2 MG/ML 2 ML VIAL ONE (10:13)
--- NOTE | 2022-11-25 10:39 | Operative Report ---
PG Post Operative Report Pre & Post Diagnosis Operation Date: 11/25/22 08:20 Pre-Op Diagnosis: Right Knee Degenerative Joint Disease Post-Op Diagnosis: Right Knee Degenerative Joint Disease I identified the patient and participated in the time-out.: Yes Procedure Operation Date: 11/25/22 08:20 Actual Procedures p Right Total Knee Arthroplasty, Cemented(Right) - Tristen Shipley MD Surgeon Tristen Shipley MD Repairer General Samir Galvez PA-C Estimated Blood Loss 50 Findings Consistent with Post-Op Diagnosis Operative findings were advanced right knee tricompartment DJD. She had pretty extensive grade 4 [id number] disease in all 3 compartments. Moderate-sized joint effusion. Specimens Right knee sent for pathology Anesthesia Type Spinal MAC Complications none Disposition Accompanied Patient To Recovery: No Indications Patient is an 82-year-old female said a long history of bilateral knee pain discomfort and arthritic symptoms. She has a rough left knee replaced 6 years ago and is done well from this. She been through extensive conservative treatment for the right knee over the years. This became less successful. She elected proceed with total knee arthroplasty. Description of Procedure Operative implants consist of: 1. Biomet Vanguard size 65 right posterior stabilized femoral component. 2. Biomet size 67 tibial tray. 3. 10 mm posterior stabilized polyethylene insert. 4. 31 x 8 all poly patella. The patient was taken to the operating, identified, placed on the operating table supine position architectures were properly padded. IV antibiotics tried by anesthesia team. Spinal anesthetic and abductor canal block had been provided in the holding area. Ramirez catheter was placed in sterile fashion. Right thigh tent was then placed in the right lower extremities then prepped and draped in usual sterile fashion. The right leg was elevated exsanguinated with use of an Esmarch and tourniquet placed at 300 mmHg. An anterior approach to the right knee was then performed to longitudinal incision centered over the patella. Sharp dissection was carried through subcutaneous tissue down the extensor mechanism. A medial parapatellar arthrotomy incision was made. Some subperiosteal dissection was carried out medially. The fat pad was resected from Neath patella tendon. The lateral patellofemoral ligament was released. Patella subluxated laterally knee was flexed. The osteophytes taken on distal femur. The ACL PCL then released and the distal femur and the tibia subluxated anteriorly. The external tibial alignment jig was then placed in the interface the tibia and adjusted 12 mm medially. Proximal tibial cut was made to take several millimeters from the medial side. There her tibia was clearly deficient on the lateral side. The tibia was then sized to a size 67. Attention drawn the femur. The distal femur examined the sharp drill. Intramedullary canal was suction. A right 5 degree valgus cutting guide was placed. Distal femoral cutting block was pinned in place. Distal femoral cut was made to take an additional 3 mm of bone off distal femur. The knee was brought out into full extension. I did release some of the IT band in order to equalize the extension gap. Great care was taken to protect the peroneal nerve at all times. The femur was then sized to a size 65. The AP cutting block was pinned parallel to the epicondylar axis which was 4 degrees of external rotation. Anterior cut, anterior chamfer, posterior cut, posterior chamfer cuts were made. The box cutting guide was placed in just slight lateral and the box cut was made. The knee was flexed. The remnants of the medial lateral menisci were excised. The osteophytes taken off the posterior aspect the femur. A trial femoral component was placed for the tibial placement in maximum external rotation and the drill and stem punch were used to create defect in proximal tibia for the tibial tray. The knee was then trialed and the 10 mm insert fit most appropriately. Attention drawn the patella. Her patella was cleaned of all soft tissues. Patella thickness measured 21 mm in thickness was cut down to 13. It was sized to a size 31 patella. The lug holes were drilled for 31 patella. The lateral osteophyte was removed. Patella button was placed. Knee was taken through range of motion patella tracked nicely with no thumbs test. Attention drawn to place the permanent components. All trial components were removed. Bone plug was placed in the distal femur limit blood loss. Double batch Palacos G cement was mixed. Biomet Mirantisguard size 65 right posterior stabilized femoral component, size 67 tibial tray, a 10 mm post stabilized polyethylene insert, and a 31 x 8 all poly patella was then cemented in place. Knee was brought out in full extension till cement hardened. Final cement check was then performed. The pericapsular tissues were injected with total of 100 cc of combination of 20 cc of Exparel, 30 cc normal saline, 50 cc of quarter percent Marcaine with epinephrine. Patient did receive 1 g tranexamic acid. The tourniquet was let down for final tourniquet time 54 minutes. Hemostasis assured use electrocautery. Extensor mechanism closed with combination 1 PDS suture and then 1 Vicryl suture in [id number] fashion. Extensor mechanism checked found to be intact the subcutaneous tissue then closed with 2 Dexon suture in a buried interrupted fashion skin was closed skin max. Leg was then cleaned and dried and a sterile dressing with Xeroform, 4 fours, sterile cast padding, Juan bandage were applied. The patient then transferred to the recovery room in stable condition. The patient tolerated the procedure well and there were no complications. Samir Galvez, my physician pier master assistant, was present for the entire procedure. His assistance was essential and required for appropriate patient positioning, prepping and draping, surgical exposure, performing the technical details of the operation, placement the implants, closure of the wound, and placement of the sterile bandage. I attest to the content of the Intraoperative Record and any orders documented therein. Any exceptions are noted below.
--- NOTE | 2022-11-25 11:31 | XRay Report ---
RIGHT KNEE 2 VIEWS History: Right total knee arthroplasty. Degenerative arthritis. Postop. FINDINGS: The patient is status post a right total knee arthroplasty. The hardware is intact. No frac ture or dislocation. Skin max are in place. IMPRESSION: Right total knee arthroplasty. No evidence for hardware complication. ACT 112: Negative or not required by law. Electronically signed by: Brad Pandey M.D. 11/25/2022 11:30 AM
--- NOTE | 2022-11-25 12:14 | Anesthesiology Progress Note ---
Date of Service November 25, 2022 Anesthesia Post Procedure Vital Signs Vital Signs: Temp Pulse Pulse Resp BP Pulse Ox O2 Del Method 11/25/22 12:00 65 16 132/65 98 Nasal Cannula 11/25/22 11:45 63 12 134/70 94 Nasal Cannula 11/25/22 11:30 97.3 F L 63 13 146/70 H 94 Nasal Cannula 11/25/22 11:25 63 12 140/68 94 Nasal Cannula 11/25/22 11:15 97.7 F 62 17 144/66 H 95 Nasal Cannula 11/25/22 11:05 60 20 120/67 90 Room Air 11/25/22 10:55 62 20 120/86 98 Oxymask 11/25/22 10:45 61 16 125/63 100 Oxymask 11/25/22 10:38 97.3 F L 65 15 129/63 96 Oxymask 11/25/22 06:40 97.9 F 67 20 179/71 H 96 Room Air O2 Flow Rate 11/25/22 12:00 2 11/25/22 11:45 2 11/25/22 11:30 2 11/25/22 11:25 2 11/25/22 11:15 2 11/25/22 11:05 11/25/22 10:55 2 11/25/22 10:45 4 11/25/22 10:38 6 11/25/22 06:40 Transfer of Care Handoff Completed per policy Notes Mental Status: alert / awake / arousable and participated in evaluation Patient Amnestic to Procedure: Yes Nausea / Vomiting: adequately controlled Pain: adequately controlled Airway Patency, RR, SpO2: stable & adequate BP & HR: stable & adequate Hydration State: stable & adequate Anesthetic Complications: no major complications apparent and Pt Satisfied with anesthetic care
[2022-11-25] MEDS: SODIUM CHLORIDE 0.9% 1,000 ML IV SCH ×2 (12:35→21:22)
[2022-11-25] MEDS ORDERED: GLUCOSE 40% GEL 15 GM TUBE PO PRN (12:39)
[2022-11-25] MEDS ORDERED: GLUCOSE 10 TAB/TUBE PO PRN (12:39)
[2022-11-25] MEDS ORDERED: NON-FORMULARY MEDICATION (Amoxicillin 500 mg tablet) PO PRN (12:39)
[2022-11-25] MEDS ORDERED: oxyCODONE HCL IR 5 MG TAB (IMMEDIATE RELEASE) PO PRN (12:39)
[2022-11-25] MEDS ORDERED: METOCLOPRAMIDE HCL INJ 5 MG/ML 2 ML VIAL IV PRN (12:39)
[2022-11-25] MEDS ORDERED: DEXTROSE 50% 50 ML SYRINGE IV PRN (12:39)
[2022-11-25] MEDS ORDERED: ALUMINUM/MAGNESIUM SUSP 30 ML UDC PO PRN (12:39)
[2022-11-25] MEDS ORDERED: NALOXONE HCL 0.4 MG/1 ML VIAL/CARP IV PRN (12:39)
[2022-11-25] MEDS ORDERED: MAGNESIUM HYDROXIDE SUSP 30 ML UDC PO PRN (12:39)
[2022-11-25] MEDS ORDERED: bisacodyL 10 MG SUPP PR PRN (12:39)
[2022-11-25] MEDS ORDERED: GLUCAGON FOR INJ 1 MG VIAL SQ PRN (12:39)
[2022-11-25] MEDS ORDERED: HYDROmorphone INJ 0.5 MG/0.5 ML SYR IV PRN (12:39)
[2022-11-25] MEDS ORDERED: CARBOHYDRATES FOR HYPOGLYCEMIA PO PRN (12:39)
[2022-11-25] MEDS ORDERED: PHARMACY GLYCEMIC MGMT CONSULT PRN (12:39)
--- NOTE | 2022-11-25 12:58 | Pharmacy Report ---
Pharmacy Glycemic Short Note 2 - Date of Service November 25, 2022 - Glycemic Short BSG Results (Last 24 hours): 11/25/22 11/25/22 06:45 10:40 POC Glucose 160 H 163 H OUTPATIENT ANTIDIABETIC REGIMEN: * glipizide 5 mg daily, metformin 500 mg qpm ASSESSMENT: * 82 year old female, now s/p right TKA, POD 0 - pharmacy consulted for glycemic management. Postop BSG value 163 mg/dL - anticipate steroid induced h yperglycemia as steroids given intraoperatively. * Plan to give NPH 10 units x 1 now to help covering steroid effects - will start novolog stress 2/3 dosing PLAN FOR INPATIENT GLYCEMIC CONTROL: * Hold outpatient oral diabetes medications * Basal insulin * NPH 10 units x 1 now * Bolus insulin * NovoLog per scale ACHS or Q6hrs while NPO * Goal Range: Low 110 mg/dL - High 140 mg/dL * Correction Factor: 30 mg/dL/unit * Nutritional / Prandial insulin per carb ratio of 1 unit per 10 grams CHO consumed
[2022-11-25] MEDS ORDERED: NovoLIN-N (NPH) PER UNIT CHARGE SQ ONE (13:15)
[2022-11-25] MEDS: INSULIN ASPART PER UNIT CHARGE SC SCH ×3 (13:31→21:23)
[2022-11-25] MEDS: ACETAMINOPHEN 500 MG TAB PO SCH ×2 (13:32→20:06)
[2022-11-25] MEDS: KETOROLAC TROMETHAMINE 15 MG/ML VIAL IV SCH ×2 (16:24→21:22)
[2022-11-25] MEDS: ASCORBIC ACID 500 MG TAB PO SCH (16:25)
[2022-11-25] MEDS: ceFAZolin 1000MG 1,000 MG/7.5 ML SYR IV SCH (16:25)
[2022-11-25] MEDS ORDERED: TRANEXAMIC ACID / 0.7% NACL 1,000 MG/100 ML BAG IV SCH (17:00)
[2022-11-25] MEDS: ASPIRIN 81 MG ECTAB PO SCH (20:07)
[2022-11-25] MEDS: DOCUSATE SODIUM 100 MG CAP PO SCH (20:08)
[2022-11-25] MEDS ORDERED: ATORVASTATIN 40 MG TAB PO SCH (21:00)
[2022-11-25] MEDS ORDERED: amLODIPine BESYLATE 5 MG TAB PO SCH (21:00)
[2022-11-25] MEDS ORDERED: SENNA 8.6 MG TAB PO SCH ×2 (21:00)
[2022-11-25] MEDS ORDERED: LOSARTAN POTASSIUM 50 MG TAB PO SCH (21:00)
[2022-11-26] MEDS: ceFAZolin 1000MG 1,000 MG/7.5 ML SYR IV SCH (00:48)
[2022-11-26] MEDS: KETOROLAC TROMETHAMINE 15 MG/ML VIAL IV SCH ×2 (04:20→09:19)
[2022-11-26 06:51] LABS: Hematocrit (blood only) 29.1 % (37.0-47.0); Hemoglobin 9.9 g/dl (12.0-16.0); Mean Corpuscular Hemoglobin 32.6 pg (25.0-34.0); Mean Corpuscular Volume 95.7 fL (80.0-100.0); Mean Platelet Volume 11.5 fL (9.4-12.4); Platelet Count 149 K/uL (130-400); RDW Coefficient of Variation 13.3 % (11.5-14.5); Red Blood Count 3.04 M/uL (4.20-5.40); White Blood Count 12.28 K/ul (4.8-10.8)
[2022-11-26 06:57] LABS: BUN Creatinine Ratio 25.8 (10-20); Calcium 8.3 mg/dl (8.6-10.3); Est GFR (African American) 97.3 ml/min; Potassium 3.5 mmol/L (3.5-5.1)
[2022-11-26] MEDS: DOCUSATE SODIUM 100 MG CAP PO SCH (07:50)
[2022-11-26] MEDS: ASPIRIN 81 MG ECTAB PO SCH (07:50)
[2022-11-26] MEDS: ACETAMINOPHEN 500 MG TAB PO SCH (07:51)
[2022-11-26] MEDS: ASCORBIC ACID 500 MG TAB PO SCH (07:52)
[2022-11-26] MEDS ORDERED: MULTIVITAMIN TAB PO SCH (09:00)
[2022-11-26] MEDS ORDERED: glipiZIDE 5 MG TAB PO SCH (09:00)
[2022-11-26] MEDS: INSULIN ASPART PER UNIT CHARGE SC SCH ×2 (09:19→12:15)
--- NOTE | 2022-11-26 11:25 | Orthopedic Progress Note ---
Date of Service November 26, 2022 Assessment & Plan (1) Status post right knee replacement: 82-year-old female with multiple medical comorbidities now with postop day 1 from right knee replacement doing well. Pains been controlled. Therapy went well. She is hoping to go home. Plan: 1. DVT prophylaxis including thigh-high teds, SCDs, aspirin twice a day. 2. PT OT. Weight-bear as tolerated right total knee protocol. 3. Pain control doing okay with current pain regimen. 4. Disposition plan to discharge home with some home health and her 's assistance. Subjective . 82-year-old female postop day 1 from right knee replacement. She is doing quite well. Had a bit of pain in the middle night left some pain medicine doing much better this morning. No other complaints. No chest pain or shortness of breath. Not feeling dizzy or lightheaded. Review of Systems All systems reviewed & are unremarkable except as noted in HPI & below. Physical Exam . Physical examination was a pleasant elderly female. Sitting up in her bedside talking to the therapist when I visited her this morning. Examination the right leg reveals dressing clean dry and intact patient dorsiflex and plantarflex her foot appropriately. She is neurologically intact. Respiratory normal respiratory effort, lungs clear to auscultation Cardiovascular RRR, no murmur, no edema Gastrointestinal (Abdomen) normal bowel sounds, soft, nontender, no hepatosplenomegaly Results & Data Results & Data Laboratory Results . Hemoglobin is 9.9. Hematocrit 29.1. Electrolytes are stable. Diagnostic Findings . PG Care Time/CCT Total # of Minutes Spent Total Time Spent with Patient: Total time spent is greater than 50% in coordination of care (as documented) at patient's floor/unit and/or counseling patient: Coding Level of Care Code 61937 Post Operative Follow-Up Diagnoses Status post right knee replacement Z96.651
== END 2022-11-26 13:38 | disposition home health service (06) ==
LOC: ASU 06:19 → 3E 06:19